=== PATIENT | male | born 1950 | race Caucasian/White ===

== ENCOUNTER → 2018-08-16 | Outpatient (CLI) | payer MEDICARE, OTHER ==
[2018-08-16] VITALS (8 sets, daily range): BP systolic 176–184; BP diastolic 60–114
[~2018-08-16] VITALS: Ht 182.9 cm; Wt 158.8 kg
[~2018-08-16] MED LIST: ACETAMINOPHEN325 M1 PO; ALEVE220 M1; APAP500 PO; ASPIRIN EC81 M1 PO; COLACE100 MG PO; CYMBALTA20 MG PO; ELIQUIS5 MG PO; FOLIC ACID1 MG PO; GLYCOLAX POWDER17 G1 PO; HYDROCODON-ACE1 EAC7 PO; LISINOPRIL40 MG; LISINOPRIL5 MG PO; LOPRESSOR 50 MG50 M1 PO; LOPRESSOR50 PO; METAMUCIL1 EAC1 PO; MIRALAX17 GM PO; MOBIC15 MG PO; MOM PO; MULTIVITAMINS PO; MULTIVITAMINS1 EAC7 PO; OXYCODONE HCL 55 MG PO; PAIN MED; PLAVIX 75 MG TA75 M1 PO; SINEMET 25-1001 EAC1 PO; SOTALOL 120 MG120 M1 PO; VITAMIN B-1100 M1 PO; XARELTO10 MG PO; ZOCOR 20 MG TAB20 M1 PO; ZOCOR20 MG PO
[2018-08-16 10:35] LABS: HEMATOCRIT 46.3 % (42.0-52.0); HEMOGLOBIN 16.1 gm/dL (14.0-18.0); MCH 30.1 pg (26.0-34.0); MCHC 34.8 g/dL (28.0-37.0); MCV 86.5 fL (80.0-100.0); MPV 8.4 fl. (7.2-11.1); RBC 5.36 mil/uL (4.50-6.00); RDW-CV 13.6 % (10.5-14.5); WBC 6.5 thou/uL (4.0-11.0)
[2018-08-16 10:44] LABS: APTT 26.6 Seconds (25.0-31.3); PROTIME 10.1 Seconds (9.20-11.50)
== END | disposition home or self-care (01) ==
LOC: M.ULTRA 09:21
PROVIDERS: Radiology Diagnostic Radiology
DX: C61 Malignant neoplasm of prostate (principal); I10 Essential (primary) hypertension; I25.2 Old myocardial infarction; G20 Parkinson's disease; Z98.890 Other specified postprocedural states; Z79.01 Long term (current) use of anticoagulants; Z79.899 Other long term (current) drug therapy

== ENCOUNTER → 2018-09-07 | Outpatient (CLI) | payer MEDICARE, OTHER | LOC: M.NUC 09-02 13:39 | DX: C61 Malignant neoplasm of prostate (principal) ==

== ENCOUNTER → 2018-10-15 | Outpatient (CLI) | payer MEDICARE, OTHER | LOC: M.ULTRA 13:44 | DX: M79.89 Other specified soft tissue disorders (principal); M25.571 Pain in right ankle and joints of right foot ==

== ENCOUNTER → 2019-03-02 | Outpatient (CLI) | payer MEDICARE, OTHER ==
--- NOTE | 2019-03-02 11:33 | 2DMMODE ---
[place] [address] 2 D/M-MODE ECHOCARDIOGRAM Name: JAMES LAGOS Room: [facility]#: [id number] Admission: 03/02/19 Attend Phys: Wilfredo Marshall, Discharge: Date of : 54 Date of Service: 03/02/19 1132 Report #: [id number] THIS REPORT FOR: //name// APPROVED REPORT Study performed: 03/02/2019 09:11:35 EXAM: Comprehensive 2D, Doppler, and color-flow Echocardiogram Patient Location: Out-Patient BSA: 2.78 HR: 83 bpm BP: 140/90 mmHg Other Information Study Quality: Fair Indications Atrial Fibrillation 2D Dimensions IVSd: 16.28 (7-11mm) LVOT Diam: 21.07 (18-24mm) LVDd: 48.53 mm PWd: 12.57 (7-11mm) Ascending Ao: 31.79 (22-36mm) LVDs: 32.93 (25-40mm) Aortic Root: 33.41 mm Volumes Left Atrial Volume (Systole) LA ESV Index: 17.40 mL/m2 Aortic Valve AoV Peak Monico.: 1.43 m/s AO Peak Gr.: 8.18 mmHg LVOT Max P.75 mmHg AO Mean Gr.: 4.81 mmHg LVOT Mean P.91 mmHg LVOT Max V: 0.97 m/s AO V2 VTI: 33.32 cm LVOT Mean V: 0.64 m/s LITTLE (VTI): 2.39 cm2 LVOT V1 VTI: 22.85 cm Mitral Valve E/A Ratio: 0.90 MV Decel. Time: 244.49 ms MV E Max Monico.: 0.72 m/s MV PHT: 70.90 ms MVA (PHT): 3.10 [place]2 [place] [address] 2 D/M-MODE ECHOCARDIOGRAM Name: JAMES LAGOS Room: [facility]#: [id number] Admission: 03/02/19 Attend Phys: Wilfredo Marshall, Discharge: Date of : 54 Date of Service: 03/02/19 1132 Report #: [id number] TDI E/Lateral E': 7.20 E/Medial E': 7.20 Medial E' Monico.: 0.10 m/s Lateral E' Monico.: 0.10 m/s Pulmonary Valve PV Peak Monico.: 0.97 m/s PV Peak Gr.: 3.80 mmHg Tricuspid Valve RAP Estimate: 5.00 mmHg TR Peak Gr.: 25.60 mmHg RVSP: 30.60 mmHg PA Pressure: 30.60 mmHg Left Ventricle The left ventricle is normal size. There is normal LV segmental wall motion. Mild concentric left ventricular hypertrophy. Left ventricular systolic function is normal. The left ventricular ejection fraction is within the normal range. LVEF is 55-60%. The left ventricular diastolic function is normal. Right Ventricle The right ventricle is normal size. The right ventricular systolic function is normal. Atria The left atrium size is normal. The right atrium size is normal. Aortic Valve Aortic valve is mildly calcified. No aortic regurgitation is present. There is no aortic valvular stenosis. Mitral Valve The mitral valve is normal in structure. Mild mitral regurgitation. No evidence of mitral valve stenosis. Tricuspid Valve The tricuspid valve is normal in structure. Mild tricuspid regurgitation. estimated pa pressure 30 mm Hg Pulmonic Valve The pulmonary valve is normal in structure. There is no pulmonic valvular regurgitation[place] [address] 2 D/M-MODE ECHOCARDIOGRAM Name: JAMES LAGOS [id number] Admission: 03/02/19 Attend Phys: Wilfredo Marshall, Discharge: Date of : 54 Date of Service: 03/02/19 1132 Report #: [id number] The aortic root is normal in size. IVC is normal in size and collapses >50% with inspiration. Pericardium There is no pericardial effusion. <Conclusion> Mild concentric left ventricular hypertrophy. LVEF is 55-60%. Aortic valve is mildly calcified. Mild mitral regurgitation. <ELECTRONICALLY SIGNED> By: James Escalona MD, [facility] 03/02/19 1132 113 31 James Escalona MD, [facility] /INF
== END ==
LOC: M.CRD 02-21 09:00
DX: I08.3 Combined rheumatic disorders of mitral, aortic and tricuspid valves (principal); I48.0 Paroxysmal atrial fibrillation